=== PATIENT | female | born 1995 | race Caucasian/White ===

== ENCOUNTER 2021-11-11 16:26 | Emergency (ER) | payer BC, OTHER ==
[2021-11-11 16:55] VITALS: BP 132/88; PULSE 99; O2SAT 100
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
== END 2021-11-11 17:44 | disposition home or self-care (01) ==
LOC: ED 16:26
DX: S62.336A Displaced fracture of neck of fifth metacarpal bone, right hand, initial encounter for closed fracture (principal); W22.01XA Walked into wall, initial encounter; M79.641 Pain in right hand; I10 Essential (primary) hypertension; Z79.899 Other long term (current) drug therapy; Z28.310 Unvaccinated for COVID-19
CPT/HCPCS: 29125; 73130; 99283